=== PATIENT | female | born 1980 | race Caucasian/White ===

== ENCOUNTER → 2019-06-18 | Outpatient (CLI) | payer OTHER ==
[~2019-06-18] MED LIST: AFRIN NAS; ALPH300T2 PO; CETI10CA PO; MELA10TA PO; NORG1TAB61 PO; RANI150T4 PO; ZOLP-413 PO; acetaminophen 500mg PO; ibuprofen PO
[2019-06-18 09:13] LABS: BASOPHILS # (AUTO) 0.08 x10^3/uL (0-0.1); BASOPHILS % (AUTO) 1 % (0-1); EOSINOPHILS # (AUTO) 0.03 x10^3/uL (0-0.4); EOSINOPHILS % (AUTO) 0 % (1-7); LYMPHOCYTES # (AUTO) 1.72 x10^3/uL (1-3.4); LYMPHOCYTES % (AUTO) 23 % (22-44); MD NO; MEAN CORPUSCULAR HEMOGLOBIN 30.2 pg (27.0-34.8); MEAN CORPUSCULAR HGB CONC 33.2 g/dL (32.4-35.8); MEAN CORPUSCULAR VOLUME 90.8 fL (80-100); MEAN PLATELET VOLUME 8.2 fL (7.4-10.4); MONOCYTES # (AUTO) 0.51 x10^3/uL (0.2-0.8); MONOCYTES % (AUTO) 7 % (2-9); NEUTROPHILS # (AUTO) 5.15 x10^3/uL (1.8-6.8); NEUTROPHILS % (AUTO) 69 % (42-75); PLATELET COUNT 320 x10^3/uL (130-400); RED BLOOD COUNT 4.81 x10^6/uL (3.82-5.3); RED CELL DISTRIBUTION WIDTH 13.2 % (9.6-15.2)
[2019-06-18 09:15] LABS: MICROSCOPIC AUTO
[2019-06-18 09:17] LABS: CULTURE INDICATED? YES
[2019-06-18 10:50] LABS: ALBUMIN 3.8 g/dL (3.4-5.0); ANION GAP 7 mmol/L (5-15); CHLORIDE 108 mmol/L (98-107)
[2019-06-18 10:59] LABS: ALANINE AMINOTRANSFERASE 23 U/L (12-78); ALKALINE PHOSPHATASE 52 U/L (45-117); BILIRUBIN,TOTAL 0.4 mg/dL (0.2-1.0); CREATININE 0.74 mg/dL (0.55-1.02); TOTAL PROTEIN 7.6 g/dL (6.4-8.2)
== END | disposition home or self-care (01) ==
LOC: STAR 07:49
PROVIDERS: ATTEND Obstetrics & Gynecology
DX: Z01.818 Encounter for other preprocedural examination (principal); N92.0 Excessive and frequent menstruation with regular cycle; D21.9 Benign neoplasm of connective and other soft tissue, unspecified; R10.13 Epigastric pain
CPT/HCPCS: 36415; 80053; 81001; 84702; 85025; 87086

== ENCOUNTER 2019-07-02 08:28 | Day surgery (SDC) | payer OTHER ==
[~2019-07-02] VITALS: Ht 157.5 cm; Wt 67.3 kg
[2019-07-02] MEDS ORDERED: LACTATED RINGERS 1,000 ML IV SCH (08:58)
[2019-07-02] MEDS ORDERED: ACETAMINOPHEN 500 MG TABLET PO ONE (09:00)
[2019-07-02] MEDS ORDERED: GABAPENTIN 300 MG CAPSULE PO ONE (09:00)
[2019-07-02] MEDS ORDERED: MIDAZOLAM 1 MG/ML, 2ML ONE (09:01)
[2019-07-02] MEDS ORDERED: FENTANYL PF 100 MCG/2ML ONE ×2 (09:01→12:42)
[2019-07-02] MEDS ORDERED: ONDANSETRON 2MG/ML, 2ML ONE (09:02)
[2019-07-02] MEDS ORDERED: CEFAZOLIN 1,000 MG ONE ×2 (09:02)
[2019-07-02] MEDS ORDERED: PROPOFOL 10 MG/ML, 20ML ONE (09:02)
[2019-07-02] MEDS ORDERED: METOCLOPRAMIDE 5 MG/ML, 2ML ONE (09:02)
[2019-07-02] MEDS ORDERED: DEXAMETHASONE 4 MG/ML, 1ML ONE ×2 (09:02)
[2019-07-02] MEDS ORDERED: LIDOCAINE-MPF 2% ,5ML ONE (09:02)
[2019-07-02] MEDS ORDERED: ROCURONIUM 10MG/ML,5ML ONE (09:02)
[2019-07-02 09:41] LABS: HCG UR SG 1.015 (1.003-1.030)
[2019-07-02] MEDS ORDERED: FLUORESCEIN SODIUM 500 MG/5 ML ONE (10:12)
[2019-07-02] MEDS ORDERED: BUPIVACAINE/PF 0.25% ONE (10:12)
[2019-07-02] MEDS ORDERED: DIPHENHYDRAMINE 50 MG/ML, 1ML IVPush PRN (11:30)
[2019-07-02] MEDS ORDERED: ONDANSETRON 2MG/ML, 2ML IV PRN (11:30)
[2019-07-02] MEDS ORDERED: hydrALAzine 20 MG/ML, 1ML IV PRN (11:30)
[2019-07-02] MEDS ORDERED: LABETALOL 5MG/ML, 20ML IV PRN (11:30)
[2019-07-02] MEDS ORDERED: OXYcodone 5 MG/5 ML ORAL.SOL UDC PO PRN (11:30)
[2019-07-02] MEDS ORDERED: MEPERIDINE/PF 25MG/ML,1ML IVPush PRN (11:30)
[2019-07-02] MEDS ORDERED: FENTANYL PF 100 MCG/2ML IV PRN (11:30)
[2019-07-02] MEDS ORDERED: LORazepam 2 MG/ML, 1ML IVPush PRN (11:30)
[2019-07-02] MEDS ORDERED: HYDROmorphone 2 MG/ML, 1ML IVPush PRN (11:30)
[2019-07-02] MEDS ORDERED: OXYcodone 5 MG/5 ML ORAL.SOL UDC ONE (12:42)
[2019-07-02] MEDS ORDERED: NEOSTIGMINE 1 MG/ML, 10ML ONE (16:21)
[2019-07-02] MEDS ORDERED: GLYCOPYRROLATE 0.2MG/1ML, 5ML ONE (16:21)
== END 2019-07-02 19:15 | disposition home or self-care (01) ==
LOC: OUT 08:28
PROVIDERS: ATTEND Obstetrics & Gynecology
DX: D25.9 Leiomyoma of uterus, unspecified (principal); N72 Inflammatory disease of cervix uteri; N92.0 Excessive and frequent menstruation with regular cycle; R10.2 Pelvic and perineal pain; Z79.899 Other long term (current) drug therapy; Z88.1 Allergy status to other antibiotic agents; Z82.49 Family history of ischemic heart disease and other diseases of the circulatory system
CPT/HCPCS: 58552; 81025; 88307; J0690; J1100; J2250; J2405; J2704; J2710; J2765; J3010; J3490; J7120